=== PATIENT | male | born 1970 | race Caucasian/White ===

== ENCOUNTER 2017-09-06 23:07 | Emergency (ER) | payer SELFPAY ==
[~2017-09-06] VITALS: Ht 185.4 cm; Wt 77.1 kg
--- NOTE | 2017-09-06 23:25 | NUR ---
TO BED 8 A 46 YO MALE PATIENT BB SELF AND REPORTS OF "I USED [facility] TODAY." PATIENT IS ALERT RESPONSIVE, NOTED ANXIOUS, SINUS TACHY ON THE MONITOR. PLACED ON CARDIAC AND VS MONITOR. BREATHING EVEN AND UNLABORED. SAFETY MEASURES IN PLACE. COMFORT MEASURES RENDERED.
[2017-09-06] MEDS ORDERED: LORAZEPAM INJ 2 MG/ML VIAL IV ONE (23:30)
[2017-09-06] MEDS ORDERED: IV NS 0.9% 1,000 ML BAG IV ONE (23:30)
[2017-09-06] MEDS ORDERED: LORAZEPAM INJ 2 MG/ML VIAL ONE (23:47)
--- NOTE | 2017-09-06 23:53 | NUR ---
started a saline lock on the lac g18.
--- NOTE | 2017-09-06 23:55 | NUR ---
medicated patient as ordered by Dr Maria.
[2017-09-07] MEDS ORDERED: LORAZEPAM INJ 2 MG/ML VIAL ONE ×2 (00:35→02:52)
[2017-09-07] MEDS ORDERED: LORAZEPAM INJ 2 MG/ML VIAL IV ONE ×2 (01:00→03:00)
[2017-09-07] MEDS ORDERED: IV NS 0.9% 1,000 ML BAG IV ONE (03:00)
--- NOTE | 2017-09-07 03:30 | NUR ---
patient is resting bed at this time. ongoing vs monitoring.
[2017-09-07 05:01] VITALS: BP 128/84
--- NOTE | 2017-09-07 05:02 | NUR ---
patient not seen in bed, checked surroundings, patient noted to have eloped. Noted to have the IV cath on the floor. patient was seen by MD, was pending for discharge. vss.
== END 2017-09-07 05:05 | disposition left against medical advice (07) ==
LOC: ER 23:14
DX: F15.10 Other stimulant abuse, uncomplicated (principal); F17.200 Nicotine dependence, unspecified, uncomplicated
CPT/HCPCS: 96361; 96374; 96376; 99284; A4606; J2060 ×3; J7030; Z7610